=== PATIENT | male | born 1995 | race Caucasian/White ===

== ENCOUNTER 2023-01-27 13:18 | Emergency (ER) | payer SELFPAY ==
[2023-01-27 13:22] VITALS: BP 160/100; PULSE 98; RESP 18; TEMP 36.6; O2SAT 98; BMI 29.5
--- NOTE | 2023-01-27 13:25 | ED.SKABFB1 ---
HPI - Skin/Abscess/Foreign Bdy General Chief complaint: Skin/Abscess/Foreign Body Stated complaint: RASH Time Seen by Provider: 01/27/23 13:25 Source: patient Mode of arrival: walk-in Limitations: no limitations History of Present Illness HPI narrative: She presents to emergency department complaining of a rash. He states last week has developed multiple sores they look like insect bites but then the pus, and a scab and then go away. They're more noticeable in the lower extremities. He also has some in his back and arms. When that this could be MRSA so he is here for evaluation. Denies any fever, chills, or cough. He denies any upper respiratory infection symptoms. He denies any headache. Does not have any other complaints. He has apply hydrocortisone to the sores but things are not improving. Related Data Previous Rx's Medication Instructions Recorded doxycycline hyclate 100 mg tablet 100 mg PO BID 7 days #14 tabs 01/27/23 hydroxyzine HCl 50 mg tablet 50 mg PO Q8H PRN itching #20 tabs 01/27/23 mupirocin 2 % topical ointment 1 applic topical TID #15 grams 01/27/23 Allergies Allergy/AdvReac Type Severity Reaction Status Date / Time No Known Drug Allergies Allergy Verified 01/27/23 13:22 Review of Systems ROS Status of ROS 10 or more systems reviewed and unremarkable except as noted in history and below Exam Narrative Exam Narrative: Nurses notes and vital signs reviewed and patient is not hypoxic. General: Nontoxic, Well-appearing and in no apparent distress. Skin: Warm, dry, no pallor noted. Multiple insect bites with pustules to the left lower extremity upper back and arms. Consistent with insect bites. Head: Normocephalic, atraumatic. Neck: Supple, non-tender. Eye: Pupils are equal, round and EOMI. No scleral icterus. Ears, Nose, Mouth, and Throat: TM clear, no posterior oropharynx erythema or nasal mucosal hypertrophy, uvula is mid-line Oral mucosa is moist Cardiovascular: Regular Rate and Rhythm without murmur, gallop or rub. Respiratory: No accessory muscle use or respiratory distress. Lungs are clear to auscultation, no wheezing, rales or rhonchi Chest Wall: no tenderness Back: No midline thoracic or lumbar vertebral tenderness. No CVA tenderness Musculoskeletal: normal ROM, no calf or popliteal tenderness, no lower extremity edema/swelling GI: Abdomen is soft, non-distended. Normal bowel sounds. No masses appreciated. No tenderness to palpation. No rebound, guarding, or rigidity noted. Neurological: A&O x4. No cranial nerve dysfunction observed. No truncal ataxia. Moves all extremities. Sensation intact. Psychiatric: Cooperative and interactive. Normal mood and affect. Constitutional Vital Signs - 24 hr 01/27/23 13:22 Temperature 97.8 F Pulse Rate [Monitor] 98 H Respiratory Rate 18 Blood Pressure [Left Arm] 160/100 H Pulse Oximetry 98 Course Vital Signs Vital signs: Vital Signs Temperature 97.8 F 01/27/23 13:22 Pulse Rate 98 H 01/27/23 13:22 Respiratory Rate 18 01/27/23 13:22 Blood Pressure 160/100 H 01/27/23 13:22 Pulse Oximetry 98 01/27/23 13:22 Temperature 97.8 F 01/27/23 13:22 Pulse Rate 98 H 01/27/23 13:22 Respiratory Rate 18 01/27/23 13:22 Blood Pressure 160/100 H 01/27/23 13:22 Pulse Oximetry 98 01/27/23 13:22 MDM - Skin/Abscess/Foreign Bdy MDM Narrative Medical decision making narrative: Patient will be given a prescription for mupirocin, and doxycycline. He is advised follow-up with primary care doctor. At this time the patient is without objective evidence of an acute process requiring hospitalization or inpatient management. The patient has remained hemodynamically stable. No additional indication for emergent studies at this time. I answered all questions. Discussed discharge instructions including standard anticipatory guidance and what should prompt a return to the emergency department, including if they get worse are not getting better or develops any new or concerning symptoms. I've given them specific time frame in which to follow-up, and who to follow-up with. The patient demonstrates understanding. Patient is nontoxic and stable for discharge with outpatient follow-up. This note was created with the assistance of a speech recognition program. Although the intention is to generate documents that actually reflects the content of the visit, no guarantees can be provided that every mistake has been identified and corrected by editing. Discharge Plan Discharge Chief Complaint: Skin/Abscess/Foreign Body Clinical Impression: Skin pustule, Insect bite Patient Disposition: Home, Self-Care Time of Disposition Decision: 13:54 Condition: Good Mode of Transportation: Private Vehicle Prescriptions / Home Meds: New mupirocin 2 % ointment 1 applic topical TID Qty: 15 0RF doxycycline hyclate 100 mg tablet 100 mg PO BID 7 Days Qty: 14 0RF hydroxyzine HCl 50 mg tablet 50 mg PO Q8H PRN (Reason: itching) Qty: 20 0RF Instructions: Insect Bite or Sting (ED) Stand Alone Forms: Portal Instructions Referrals: Physician,Non-Staff, MD [Primary Care Provider] - 1 week Discharge Date/Time: 01/27/23 14:15
--- NOTE | 2023-01-27 13:47 | PC.NURSE ---
pt reports rash that has been ongoing for several months. pt states rash comes and goes. pt was concerned for bedbugs but states does not have any bites or rash.
== END 2023-01-27 14:15 | disposition home or self-care (01) ==
PROVIDERS: Emergency Provider Emergency Medicine
DX: S40.862A Insect bite (nonvenomous) of left upper arm, initial encounter (principal); S40.861A Insect bite (nonvenomous) of right upper arm, initial encounter; S20.469A Insect bite (nonvenomous) of unspecified back wall of thorax, initial encounter; S80.862A Insect bite (nonvenomous), left lower leg, initial encounter; L08.9 Local infection of the skin and subcutaneous tissue, unspecified; W57.XXXA Bitten or stung by nonvenomous insect and other nonvenomous arthropods, initial encounter
CPT/HCPCS: 99283